=== PATIENT | male | born 1960 | race Caucasian/White ===

== ENCOUNTER 2021-01-07 12:08 | Emergency (ER) | payer OTHER, SELFPAY ==
[2021-01-07 12:22] VITALS: BP 106/76; PULSE 108; RESP 16; TEMP 36.3; O2SAT 99
--- NOTE | 2021-01-07 12:49 | ED.ANIMALBIT ---
HPI - Animal Bite General Chief Complaint: Animal Bite Stated Complaint: Cat Bite Time Seen by Provider: 01/07/21 12:49 Source: patient, RN notes reviewed and old records reviewed Mode of arrival: ambulatory Limitations: no limitations History of Present Illness HPI narrative: 60 YEAR OLD MALE PRESENTS TO [facility] WITH COMPLAINTS OF BEING BIT BY HIS CAT TO DISTAL LEFT ARM 7-8 DAYS AGO. PATIENT REPORTS THAT HIS TETANUS IS UP TO DATE FROM 6 MONTH AGO. PATIENT VERBALIZED PAIN, SWELLING, REDNESS OF LEFT FOREARM WITH SOME SCABBED AREAS TO ANTERIOR DISTAL FOREARM. PATIENT DENIES ANY FEVERS, CHILLS OR SWEATS. PATIENT HAS FULL MOBILITY OF HIS LEFT FOREARM WITH CIRCULATION AND SENSATION INTACT, REDNESS AND SWELLING IS PRESENT TO HIS LEFT FOREARM. PATIENT REPORTS USING ICE TO HIS LEFT FOREARM AND TAKING ASPIRIN FOR HIS PAIN WHICH HE RATES 9/10 CONSTANT THROBBING.. complaint: animal bite Onset (ago): day(s) (7-8 DAYS AGO) Animal: cat Related Data Patient tetanus UTD: Yes Home Medications Medication Instructions Recorded Confirmed albuterol sulfate 90 mcg INHALATION QID PRN 01/07/21 01/07/21 budesonide-formoterol [Symbicort] 160 inh INHALATION BID PRN 01/07/21 01/07/21 cyclobenzaprine 10 mg PO DAILY PRN 01/07/21 01/07/21 famotidine 20 mg PO BID PRN 01/07/21 01/07/21 hydroxyzine HCl 25 mg PO HS PRN 01/07/21 01/07/21 ipratropium bromide [Atrovent HFA] 17 mcg INHALATION Q6-8H PRN 01/07/21 01/07/21 lisinopril 10 mg PO DAILY 01/07/21 01/07/21 umeclidinium [Incruse Ellipta] 62.5 mcg INHALATION DAILY 01/07/21 01/07/21 Allergies Allergy/AdvReac Type Severity Reaction Status Date / Time No Known Allergies Allergy Unverified 10/14/17 16:13 Review of Systems Review of Systems: CONSTITUTIONAL: Denies fever, chills, or sweats. EYES: Denies visual changes, redness, or discharge. ENT: Denies rhinorrhea, congestion, sore throat, or otalgia. CARDIOVASCULAR: Denies chest pain, palpitations, or edema. RESPIRATORY: Denies ACUTE cough or dyspnea. GASTROINTESTINAL: Denies abdominal pain, nausea, vomiting, or diarrhea. GENITOURINARY: Denies dysuria or hematuria. SKIN: Denies rash or itching positive for redness, swelling and discomfort to distal left forearm with scabbed areas on dorsal forearm from scratches and bites. MUSCULOSKELETAL: Denies back pain, joint pain, or myalgia. NEUROLOGIC: Denies headache, numbness, or weakness. PSYCHIATRIC: Positive for history of anxiety or depression. All systems reviewed & are unremarkable except as noted in HPI and below PMFSH Past Medical History Medical History (Updated 01/08/21 @ 00:01 by Background [facility]) Asthma COPD (chronic obstructive pulmonary disease) Depression with anxiety Fracture of left ankle Hypercholesterolemia Hypertension Tuberculosis Surgical History Surgical History (Updated 01/07/21 @ 13:56 by Michelle Baptiste NP) History of tonsillectomy and adenoidectomy Family History Family History (Updated 06/28/18 @ 15:35 by DOCTOR UNKNOWN) Other Diabetes mellitus Family history of cardiovascular disease Family history of malignant neoplasm Hypertension Social History Social History (Updated 01/07/21 @ 13:54 by Michelle Baptiste NP) Smoking packs per day: 1 Smoking cigarettes per day: 20.0 Years smoked: 42 Smoking pack-years: 42.00 Smoking status: Current every day smoker Alcohol intake: current Substance use: never Living arrangements: with family Gender identity (if verbalized by the patient): Male Comments At time of signature, agree with nursing past medical, surgical, social and family history. There is no relevant family history pertinent to the presenting complaint Exam Narrative: GENERAL: Well-appearing, well-nourished, and in no acute distress. HEAD: Normocephalic, atraumatic. EYES: PERRLA and EOMI. ENT: Nares clear, no rhinorrhea or epistaxis. Mucous membranes moist. TM's normal with good light reflex, throat pink with no lesions
== END 2021-01-07 13:03 | disposition home or self-care (01) ==
PROVIDERS: Emergency Provider Registered Nurse
DX: S51.852A Open bite of left forearm, initial encounter (principal); W55.01XA Bitten by cat, initial encounter; J44.9 Chronic obstructive pulmonary disease, unspecified; E78.00 Pure hypercholesterolemia, unspecified; I10 Essential (primary) hypertension; F17.210 Nicotine dependence, cigarettes, uncomplicated
CPT/HCPCS: 99213; G0463

== ENCOUNTER 2022-02-20 11:23 | Emergency (ER) | payer OTHER, SELFPAY ==
[2022-02-20 11:28] VITALS: BP 114/79; PULSE 91; RESP 22; TEMP 36.6; O2SAT 99
--- NOTE | 2022-02-20 11:30 | ED.DENTAL ---
HPI - Dental/Oral General Stated complaint: Toothache Time Seen by Provider: 02/20/22 11:30 Source: patient Mode of arrival: ambulatory Limitations: no limitations History of Present Illness HPI Narrative: Elvin is a 61-year-old male patient presenting to the clinic today with complaints of a toothache x2 days. He reports redness, swelling, and pain to the right lower teeth. No fever or chills. Has been using lidocaine and Orajel on this without relief Related Data Home Medications Medication Instructions Recorded Confirmed albuterol sulfate 90 mcg/actuation 90 mcg inhalation QID PRN 01/07/21 02/20/22 aerosol inhaler Shortness Of Breath Or Wheezing budesonide-formoterol HFA 160 160 inh inhalation BID PRN 01/07/21 02/20/22 mcg-4.5 mcg/actuation aerosol Shortness Of Breath Or Wheezing inhaler (Symbicort) cyclobenzaprine 10 mg tablet 10 mg PO DAILY PRN Muscle Pain 01/07/21 02/20/22 famotidine 20 mg tablet 20 mg PO BID PRN Acid Reflux 01/07/21 02/20/22 hydroxyzine HCl 25 mg tablet 25 mg PO HS PRN Sleep 01/07/21 02/20/22 ipratropium bromide 17 17 mcg inhalation Q6-8H PRN 01/07/21 02/20/22 mcg/actuation HFA aerosol inhaler Shortness Of Breath Or Wheezing (Atrovent HFA) lisinopril 10 mg tablet 10 mg PO DAILY 01/07/21 02/20/22 umeclidinium 62.5 mcg/actuation 62.5 mcg inhalation DAILY 01/07/21 02/20/22 blister powder for inhalation (Incruse Ellipta) Allergies Allergy/AdvReac Type Severity Reaction Status Date / Time No Known Allergies Allergy Unverified 02/20/22 11:33 Review of Systems Review of Systems: Pertinent positives per HPI. Patient denies any fever, chills, rash, headache, visual changes, dizziness, cough, runny nose, sore throat, shortness of breath, chest pain, palpitations, nausea, vomiting, diarrhea, constipation, abdominal pain, or any urinary issues. PMFSH Past Medical History Medical History Asthma COPD (chronic obstructive pulmonary disease) Depression with anxiety Fracture of left ankle Hypercholesterolemia Hypertension Tuberculosis Surgical History Surgical History History of tonsillectomy and adenoidectomy Family History Family History Other Diabetes mellitus Family history of cardiovascular disease Family history of malignant neoplasm Hypertension Social History Social History Smoking packs per day: 1 Smoking cigarettes per day: 20.0 Years smoked: 42 Smoking pack-years: 42.00 Smoking status: Current every day smoker Alcohol intake: current Substance use: never Gender identity (if verbalized by the patient): Male Comments At the time of my signature, I reviewed and agree with the nursing past medical, surgical, social, and family history. There is no relevant family history pertinent to the patient complaint. Exam Narrative: General: Well-developed, well nourished, in no apparent distress Head: Normocephalic, atraumatic Eyes: Pupils equally round and reactive to light bilaterally, EOM intact, sclera and conjunctive clear, no discharge, lids normal Ears: TMs intact and clear, ear canals clear, no drainage, grossly hearing normal. Nose: Nares patent, no discharge, no inflammation, no sinus tenderness. Mouth: Oropharynx without lesions or masses, very poor dentition, MMM. number [id number] necrotic teeth with redness and swelling of the gum and tenderness in the jaw Neck: Supple, trachea midline, no enlargement of anterior or posterior cervical nodes, no thyroid masses or goiter palpable. Cardio: Regular rate and rhythm, s1 and s2 normal, no murmur appreciated. Resp: Clear to auscultation bilaterally anteriorly and posteriorly, no rhonchi, rales, wheezing or rubs Course Course Emergency Course
== END 2022-02-20 11:40 | disposition home or self-care (01) ==
PROVIDERS: Emergency Provider Nurse Practitioner Family; PCP Internal Medicine
DX: K04.7 Periapical abscess without sinus (principal); F17.210 Nicotine dependence, cigarettes, uncomplicated; J44.9 Chronic obstructive pulmonary disease, unspecified; E78.00 Pure hypercholesterolemia, unspecified; I10 Essential (primary) hypertension; F41.9 Anxiety disorder, unspecified
CPT/HCPCS: 99213; G0463